=== PATIENT | male | born 1960 | race Caucasian/White ===

== ENCOUNTER → 2018-06-28 | Outpatient (CLI) | payer OTHER ==
--- NOTE | 2018-06-30 15:08 | US ---
EXAM DESCRIPTION: Abdomen,Complete: Ultrasound. CLINICAL HISTORY: RUQ PAIN COMPARISON: None Available. TECHNIQUE: Transabdominal scannin-dimensional and Doppler modes. FINDINGS: Gallbladder: Normal size. No intraluminal stones or sludge. Normal wall thickness 2.1 mm with no surrounding fluid. Nontender with transducer pressure. Common bile duct: 4.3 mm normal caliber. Liver: Multiple cysts. Largest measures 4.7 cm. Another cyst measures 1 cm. Otherwise normal echogenicity. Long axis of the right lobe 16 cm. Normal direction of flow in the vascular structures. Ducts not increased. Smooth capsule with no ascites. Pancreas: Not well visualized. Duct not seen. Abdominal aorta: Normal caliber from the proximal segment to the distal bifurcation. IVC: visualized; normal caliber. Spleen normal echogenicity; long axis measurement is 8.0 cm. Right kidney: 11.3 cm long axis. Juxta cortical 1.3 cm cyst. Otherwise normal echogenicity. Normal cortical thickness. No hydronephrosis or perinephric fluid. Left kidney: 12.3 cm long axis. Normal cortical echogenicity and thickness. No hydronephrosis or perinephric fluid. IMPRESSION: 1. 2 cysts in the liver, but normal vascularity and ducts. Otherwise normal echogenicity. Smooth capsule with no ascites. Pancreas not well visualized. 2. Gallbladder and common bile duct are unremarkable. No stones or dilation. 3. Right kidney with juxtacortical cysts, otherwise unremarkable. Left kidney negative. Spleen unremarkable. Normal caliber of the IVC and abdominal aorta. Electronically signed by: Micah Hunter MD 06/30/2018 3:05 PM [employer]
== END ==
LOC: US 07:40
PROVIDERS: ATTEND Family Medicine
DX: R10.11 Right upper quadrant pain (principal); K76.89 Other specified diseases of liver; N28.1 Cyst of kidney, acquired

== ENCOUNTER 2019-12-24 12:34 | Emergency (ER) | payer BC, OTHER ==
[2019-12-24] MEDS ORDERED: KETOROLAC TROMETHAMINE INJ 30 MG/ML VIAL IV ONE (12:49)
[2019-12-24] MEDS ORDERED: ONDANSETRON INJ 4 MG/2 ML VIAL IV ONE (12:49)
[2019-12-24] MEDS ORDERED: MORPHINE SULFATE INJ 10 MG/ML VIAL IV ONE ×2 (12:49→14:55)
--- NOTE | 2019-12-24 12:58 | ED.PDOC ---
History of Present Illness - General Chief Complaint: Abdominal Pain Stated Complaint: right lower abdominal pain Time Seen by Provider: 12/24/19 12:46 Source: patient, RN notes reviewed, Vital Signs reviewed, family Exam Limitations: no limitations - History of Present Illness Initial Comments: 59 y/o male with hx of kidney stone reports onset of RLQ and back pain 4 days ago. Has had some hematuria, no f/c, n/v/d Timing/Duration: other - 4-5 days Quality: severe, steady Onset Location: RLQ, right flank Radiation: RLQ, right flank Activites at Onset: none Prior abdominal problems: similar symptoms - kidney stones. last one 3-4 yrs ago Improving Factors: nothing Worsening Factors: nothing Associated Symptoms: abdominal pain, other - hematuria Allergies/Adverse Reactions: Allergies NO KNOWN ALLERGY Allergy (Verified 12/24/19 12:45) Home Medications: Ambulatory Orders Acetaminophen W/ Codeine [Tylenol W/ CODEINE #3] 1 ea PO Q6HR PRN 7 Days #20 12/24/19 Acetaminophen W/ Codeine [Tylenol W/ CODEINE #3] 1 ea PO Q6HRS PRN 5 Days #20 ea 12/24/19 Atorvastatin Calcium [Lipitor] 40 mg PO 12/24/19 Ketorolac Tromethamine [Toradol Tabs] 10 mg PO QID PRN 5 Days #30 tab 12/24/19 Tamsulosin HCl [Flomax] 0.4 mg PO Q24HR 5 Days 12/24/19 Review of Systems - Review of Systems Constitutional: States: no symptoms reported EENTM: States: no symptoms reported Respiratory: States: no symptoms reported Cardiology: States: no symptoms reported Gastrointestinal/Abdominal: States: abdominal pain Genitourinary: States: see HPI, hematuria Musculoskeletal: States: back pain Skin: States: no symptoms reported Neurological: States: no symptoms reported All other Systems: No Change from Baseline Family Medical History - Family History Mother Family History: Unknown Physical Exam - Physical Exam General Appearance: Other - standing by the stretcher obviously in pain Eyes, Ears, Nose, Throat Exam: PERRL/EOMI, normal ENT inspection Neck: non-tender, full range of motion, supple, normal inspection Cardiovascular/Respiratory: regular rate, rhythm, no M/R/G, normal breath sounds, no respiratory distress Gastrointestinal/Abdominal: normal bowel sounds, soft, no pulsatile mass Back Exam: normal inspection, no CVA tenderness, no vertebral tenderness Extremity: normal range of motion, non-tender, normal inspection, no pedal edema Neurologic: no motor/sensory deficits, alert, normal mood/affect, oriented x 3 Skin Exam: normal color, warm/dry Progress - Progress Progress: 12/24/19 16:[address] Maximino Aguilar. He can see pt at 1 pm tomorrow Departure - Departure Clinical Impression: Ureteral colic, Kidney stone on right side Time of Disposition: 16:56 Disposition: Discharge to Home or Self Care Condition: Good Departure Forms: ED Discharge - Pt. Copy, Patient Portal Self Enrollment Instructions: DI for Abdominal Pain-Adult Referrals: Ty Arenas MD [Primary Care Provider] - 1-2 Weeks Prescriptions: Acetaminophen W/ Codeine [Tylenol W/ CODEINE #3] 1 ea PO Q6HR PRN 7 Days #20 PRN Reason: Moderate To Severe Pain Acetaminophen W/ Codeine [Tylenol W/ CODEINE #3] 1 ea PO Q6HRS PRN 5 Days #20 ea PRN Reason: Moderate To Severe Pain Tamsulosin HCl [Flomax] 0.4 mg PO Q24HR 5 Days Ketorolac Tromethamine [Toradol Tabs] 10 mg PO QID PRN 5 Days #30 tab PRN Reason: Pain -- Moderate Home Medications: Ambulatory Orders Acetaminophen W/ Codeine [Tylenol W/ CODEINE #3] 1 ea PO Q6HR PRN 7 Days #20 12/24/19 Acetaminophen W/ Codeine [Tylenol W/ CODEINE #3] 1 ea PO Q6HRS PRN 5 Days #20 ea 12/24/19 Atorvastatin Calcium [Lipitor] 40 mg PO 12/24/19 Ketorolac Tromethamine [Toradol Tabs] 10 mg PO QID PRN 5 Days #30 tab 12/24/19 Tamsulosin HCl [Flomax] 0.4 mg PO Q24HR 5 Days 12/24/19
--- NOTE | 2019-12-24 14:17 | CT ---
EXAM DESCRIPTION: Abdoment/Pelvis w/o Contrast CLINICAL HISTORY: kidney stone RLQ pain COMPARISON: Ultrasound June 28, 2018. TECHNIQUE: Noncontrast transaxial CT images of the abdomen and pelvis are obtained. This exam was performed according to our departmental dose-optimization program, which includes automated exposure control, adjustment of the mA and/or kV according to patient size and/or use of iterative reconstruction technique . FINDINGS: Visualized lung bases show mild dependent atelectasis. Mild enlargement of the heart. Multiple fluid attenuation hepatic cysts. The largest in the medial segment of the left lobe measures 4.9 cm. Most cysts measure less than 1.5 cm. Tiny 2 mm calcification in the gallbladder. No biliary tract obstruction. Noncontrast appearance of spleen, pancreas, and adrenal glands is unremarkable. Moderate atherosclerotic disease. Moderate right hydronephrosis. AP diameter of the renal pelvis measures 2.2 cm. Mild ureteral dilatation. 9 x 6 mm calcification in the right distal ureter at the ureterovesical junction is seen. Mild right perinephric fat stranding. Small exophytic 12 mm fluid attenuation cortical cyst of the upper pole right kidney. Probable nonobstructing 1 to 2 mm punctate calcifications in the lower pole calyx of the right kidney. At least 2 nonobstructing calcifications are seen in the lower pole calyces of the left kidney measuring up to 8 mm. No ureteral calcification. Urinary bladder is contracted with moderate circumferential bladder wall thickening measuring maximum 11 mm. Prostate is mildly enlarged. Appendix is normal. Stomach distended. No bowel obstruction or inflammatory changes. Mild scattered diverticuli of the colon without associated inflammatory changes or fluid collections. No pathologic lymphadenopathy. Osseous structures show no aggressive bony lesions. Mild spondylitic changes of the spine are seen. IMPRESSION: Moderate right hydronephrosis and hydroureter secondary to a 9 x 6 mm distal ureteral calcification at the ureterovesical junction. Nonobstructing left greater than right nephrolithiasis. Multiple simple hepatic cysts are identified. Colon diverticulosis without CT evidence of diverticulitis. Electronically signed by: Garret Matias MD 12/24/2019 2:15 PM CDT
[2019-12-24 15:17] VITALS: O2SAT 97
[2019-12-24] MEDS ORDERED: KETOROLAC TROMETHAMINE INJ 30 MG/ML VIAL IM ONE (17:16)
[2019-12-24 17:26] VITALS: BP 157/88; TEMP 97.5
== END 2019-12-24 17:26 | disposition home or self-care (01) ==
LOC: ER 12:34
DX: N13.2 Hydronephrosis with renal and ureteral calculous obstruction (principal); Z87.442 Personal history of urinary calculi
CPT/HCPCS: 36415; 74176; 80048; 81001; 85025; J1885; J2270; J2405